=== PATIENT | female | born 1995 | race Caucasian/White ===

== ENCOUNTER 2023-04-10 08:32 | Emergency (ER) | payer OTHER ==
[2023-04-10 09:17] LABS: BASOPHILS ABSOLUTE AUTO 0.02 K/mm3 (0.01-0.08); BASOPHILS PERCENT AUTO 0.3 % (0.1-1.2); EOSINOPHILS ABSOLUTE AUTO 0.06 K/mm3 (0.04-0.36); HEMOGLOBIN 13.7 gm/dl (11.2-15.7); IMMATURE GRAN ABSOLUTE AUTO 0.01 K/mm3 (0.00-0.10); IMMATURE GRAN PERCENT AUTO 0.2 % (<=1.0); LYMPHOCYTES PERCENT AUTO 16.5 % (19.3-51.7); MEAN CORPUSCULAR HEMOGLOBIN 32.2 pg (25.6-32.2); MEAN CORPUSCULAR HGB CONC 34.3 g/dl (32.2-35.5); MEAN CORPUSCULAR VOLUME 93.9 fl (79.4-94.8); MEAN PLATELET VOLUME 10.8 fl (9.4-12.3); MONOCYTES ABSOLUTE AUTO 0.39 K/mm3 (0.24-0.36); MONOCYTES PERCENT AUTO 6.4 % (4.7-12.5); NEUTROPHILS ABSOLUTE AUTO 4.58 K/mm3 (1.56-6.13); NEUTROPHILS PERCENT AUTO 75.6 % (34.0-71.1); PLATELET COUNT,PLT 233 K/mm3 (182-369); RED BLOOD CELL COUNT 4.26 M/mm3 (3.98-5.22); WHITE BLOOD CELL COUNT,WBC 6.06 K/mm3 (3.98-10.04)
[2023-04-10 09:49] LABS: A/G RATIO 1.1 (1-2); ALANINE AMINOTRANSFERASE,ALT 91 U/L (14-59); ALBUMIN 3.6 g/dl (3.4-5.0); ALKALINE PHOSPHATASE 60 U/L (46-116); ANION GAP 14.1 (5-15); ASPARTATE AMNIOTRANSFERASE,AST 34 U/L (15-37); BILIRUBIN TOTAL 0.2 mg/dL (0.2-1.0); BLOOD UREA NITROGEN,BUN 10 mg/dL (7-18); BUN/CREATININE RATIO 14.3 (14-18); CALCIUM 8.9 mg/dL (8.5-10.1); CARBON DIOXIDE,CO2 26 mEq/L (21-32); CHLORIDE,CL 105 mEq/L (98-107); CREATININE 0.7 mg/dL (0.55-1.02); EST CRCL DRUG DOSING (CG) 109.59 mL/min; ESTIMATED GFR 122 mL/min (>60); GLUCOSE RANDOM 95 mg/dL (70-99); MAGNESIUM 1.7 mg/dL (1.8-2.4); POTASSIUM,K 4.1 mEq/L (3.5-5.1); PROTEIN TOTAL,TP 6.9 g/dl (6.4-8.2); SODIUM,NA 141 mEq/L (136-145); TSH 1.616 uIU/mL (0.358-3.74)
[2023-04-10 09:58] LABS: C-REACTIVE PROTEIN < 0.2 mg/dL (<1.0)
== END 2023-04-10 12:35 | disposition home or self-care (01) ==
LOC: JD.ED 08:32
DX: R51.9 Headache, unspecified (principal); R53.1 Weakness; R20.0 Anesthesia of skin; Z88.0 Allergy status to penicillin
CPT/HCPCS: 36415; 70450; 70450-26; 80053; 83735; 84443; 85025; 85379; 86140; 99283; 99285

== ENCOUNTER 2023-04-12 12:42 | Emergency (ER) | payer OTHER ==
[2023-04-12] MEDS ORDERED: Acetaminophen 325 MG Tab PO ONE (13:47)
== END 2023-04-12 14:43 | disposition home or self-care (01) ==
LOC: JD.ED 12:42
DX: F43.9 Reaction to severe stress, unspecified (principal); R51.9 Headache, unspecified; Z86.16 Personal history of COVID-19; Z88.0 Allergy status to penicillin
CPT/HCPCS: 99283; A9270

== ENCOUNTER 2025-04-17 15:11 | Emergency (ER) | payer OTHER ==
[2025-04-17] MEDS: Ondansetron 4 MG Tab.DIS PO ONE (15:50)
[2025-04-17] MEDS: Ketorolac 60 MG/2 ML SDV IM ONE (15:50)
[2025-04-17] MEDS: Acetaminophen/HYDROcodone 325-5 MG Tab PO ONE (15:50)
== END 2025-04-17 16:30 | disposition home or self-care (01) ==
LOC: JD.ED 15:11
DX: S82.841A Displaced bimalleolar fracture of right lower leg, initial encounter for closed fracture (principal); S82.831A Other fracture of upper and lower end of right fibula, initial encounter for closed fracture; Z88.0 Allergy status to penicillin; Z86.16 Personal history of COVID-19; W22.8XXA Striking against or struck by other objects, initial encounter
CPT/HCPCS: 73610; 96372; 99283; A9270; J1885; 99284

== ENCOUNTER 2025-05-14 22:43 | Emergency (ER) | payer OTHER | END 2025-05-15 01:30 | disposition home or self-care (01) | LOC: JD.ED 22:43 | DX: M79.661 Pain in right lower leg (principal); Z88.0 Allergy status to penicillin; Z79.899 Other long term (current) drug therapy; Z86.16 Personal history of COVID-19 | CPT/HCPCS: 73590; 93971; 99284; A9270; 99283 ==